=== PATIENT | female | born 1955 | race Caucasian/White ===

== ENCOUNTER 2017-10-31 01:11 | Inpatient (IN) | payer BC, SELFPAY ==
[2017-10-31] MEDS ORDERED: Sodium Chloride 0.9% 100 ML ONE (04:05)
[2017-10-31] MEDS ORDERED: cefTRIAXone\\ROCEPHIN 2 GM VIAL ONE (04:05)
[2017-10-31] MEDS ORDERED: Ketorolac Tromethamine 30 MG/ML VIAL ONE (05:26)
[2017-10-31 06:43] VITALS: BMI 30.9
--- NOTE | 2017-10-31 06:52 | PDOC.FPRHP ---
- History of Present Illness Chief Complaint: falls History of Present Illness: Patient comes in after having multiple falls and reported confusion. 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 She states she is having pain in her right shoulder. Rated at 9/10, described as sharp, worse with movement, more on the posterior side. She states she has had generalized weakness for the last 2-3 days. She denies syncope or LOC. She denies hitting her head. She denies burning with urination or blood in the urine. ED Course: toradol, rocephin, 1L NS - Allergies/Adverse Reactions Allergies Allergy/AdvReac Type Severity Reaction Status Date / Time Sulfa (Sulfonamide Allergy Verified 10/31/17 06:38 Antibiotics) - Home Medications Medication Instructions Recorded Confirmed Type Benzphetamine HCl 25 mg PO DAILY 10/31/17 10/31/17 History Levothyroxine Sodium [Synthroid] 50 mcg PO DAILY 10/31/17 10/31/17 History Metoprolol Tartrate [Lopressor] 25 mg PO BID 10/31/17 10/31/17 History Nortriptyline HCl 150 mg PO HS 10/31/17 10/31/17 History Omeprazole 20 mg PO DAILY 10/31/17 10/31/17 History Venlafaxine HCl [Effexor XR] 75 mg PO DAILY 10/31/17 10/31/17 History Zolpidem Tartrate [Ambien] 10 mg PO HS 10/31/17 10/31/17 History clonazePAM [Klonopin] 0.5 mg PO TID PRN 10/31/17 10/31/17 History - History PMHx: HTN, hypothyroidism, depression PSHx: wrist FHx: non-contributory Social: 1.5 ppd smoker for last 15 years, 1 beer per month, no drugs - Review of Systems General: reports: fatigue. denies: fever/chills, weight/appetite/sleep changes Eyes: denies: eye pain, vision changes ENT: denies: nasal congestion, rhinorrhea Respiratory: denies: cough, congestion, shortness of breath Cardiovascular: denies: chest pain, palpitation, edema, orthopnea Gastrointestinal: denies: nausea, vomiting, diarrhea, abdominal pain, GI bleeding Genitourinary: denies: dysuria, polyuria Skin: denies: rashes, itching Musculoskeletal: reports: pain, stiffness, arthritis/arthralgias Neurological: denies: numbness, weakness Psychological: reports: anxiety, depression - Vital signs BP: 117/75 HR: 81 RR: 18 Tmax: 97.9 Pox: 96% on RA Wt: 80kg - Physical Exam Constitutional: NAD -Constitutional: A&Ox3 HEENT: normocephalic and atraumatic, PERRLA, EOMI, MMM Neck: supple, FROM Heart: RRR, normal S1/S2, no murmurs/rubs/gallops Lungs: CTAB, no respiratory distress, good air movement Abdomen: soft, non-tender, bowel sounds present, no masses/distention Musculoskeletal: normal structure, ROM grossly normal Neurological: no focal deficit Skin: no rash/lesions, capillary refill <2 seconds Heme/Lymphatic: no unusual bruising or bleeding FMR H&P: A/P - Problem List (1) Encephalopathy Current Visit: Yes Status: Acute Code(s): G93.40 - ENCEPHALOPATHY, UNSPECIFIED (2) UTI (urinary tract infection) Current Visit: Yes Status: Acute (3) Clavicle fracture Current Visit: Yes Status: Acute Code(s): S42.009A - FRACTURE OF UNSP PART OF UNSP CLAVICLE, INIT FOR CLOS FX (4) HTN (hypertension) Current Visit: Yes Status: Acute Code(s): I10 - ESSENTIAL (PRIMARY) HYPERTENSION (5) Hypothyroidism Current Visit: Yes Status: Acute Code(s): E03.9 - HYPOTHYROIDISM, UNSPECIFIED (6) Depression Current Visit: Yes Status: Acute Code(s): F32.9 - MAJOR DEPRESSIVE DISORDER , SINGLE EPISODE, UNSPECIFIED - Plan #Encephalopathy 2/2 UTI - rocephin - fluids # R clavicle fracture - sling - norco 5mg q4 hr prn - appears non-displaced # HTN - home meds # depression - home meds # Hypothyroidism - home meds # code - full # PPX - lovenox, SCDs FMR H&P: [place] - Pertinent history 62 year old white female presents with her daughter complaining of falls and confusion today. She also fell twice and wet the bed. Since of the falls her right shoulder hurts. Her daughter and son reported she was asking for her ex- and if he was in the house when she has not interacted with him in years. Patient now able to answer questions and her daughter is at bedside. She denies fevers, chills, headache, dizziness, visual disturbances, rhinorrhea , sore throat, chest pain, dyspnea, abdominal pain, nausea, vomiting, diarrhea, dysuria, polyuria, and uilateral weakness. Reports generalized weakness and nasal congestion. She reports her right shoulde rhurts and she is unable to move it. She says she has a history of frequent UTIs but is usually not symptomatic. - Pertinent findings Tmax 98.3 RR 19 HR 81 BP 116/67 O2 sat 94% on room air Weight 79.4 kg Physical Exam: General: Patient awake, alert, and oriented to person and place. Eyes: EOMI, PERRL, nonicteric ENT: MMM, oropharynx clear CV: RRR, no m/r/g. Pulses full and equal in all 4 extremities Resp: CTA-B, no wheezing, rlaes, or rhonchi. Nonlabored Abdomen: NT, ND, no guarding or rebound Ext: No edema. Right collarbone and glenohumeral joint tender to palpation. Patient's range of motion in shoulder is limited by pain Skin: No rash or ulcer. No palpable lesions. Bruising on posterior of right shoulder at level of trapezius Neuro: CN II - XII intact. No focal deficits Psych: Mood and affect appropriate. - Plan Date/Time: 10/31/17 0650 IJose Elias DO, have evaluated this patient and agree with findings/plan as outlined by journalism internship resident. Pertinent changes/additions are listed here. 62 year old white female with: 1) Acute metabolic encephalopathy 2/2 urinary tract infection - Admit to medical. Blood culture and urine culture ordered. Continue iv antibiotics and iv fluids 2) Right clavicular fracture - Pain management. Ortho consult to be ordered by day team 3) HTN - Home meds 4) Depression - Home meds 5) Anxiety - Home meds
[2017-10-31] MEDS ORDERED: Ondansetron ODT 4 MG TAB PO PRN (07:01)
[2017-10-31] MEDS ORDERED: cefTRIAXone\\ROCEPHIN 1 GM in Sodium Chloride 0.9% 100 ML IVPB SCH (07:01)
[2017-10-31] MEDS ORDERED: HYDROcodone/Acetaminophen 5/325 mg Tablet PO PRN (07:01)
[2017-10-31] MEDS: Sodium Chloride 0.9% 1,000 ML IV SCH ×2 (07:23→16:08)
[2017-10-31] MEDS: Metoprolol Tartrate 25 MG TAB PO SCH ×2 (07:23→20:46)
--- NOTE | 2017-10-31 08:00 | RAD ---
2 VIEWS RIGHT HUMERUS: Date: 10/31/17 COMPARISON: Shoulder radiograph dated 10/31/17. HISTORY: Right arm pain. FINDINGS: Two views of the right humerus show no evidence of fracture or dislocation. Mild soft tissue swelling is seen. IMPRESSION: Unremarkable exam. POS: [facility]
--- NOTE | 2017-10-31 08:04 | RAD ---
3 VIEWS RIGHT SHOULDER: Date: 10/31/17 COMPARISON: None. HISTORY: Right shoulder pain. FINDINGS: Three views of the right shoulder show a lucency through the distal aspect of the clavicle which may represent a distal clavicle fracture. No dislocation is seen. No fracture of the humerus is seen. The visualized right thorax is unremarkable. IMPRESSION: Likely distal right clavicle fracture. POS: [facility]
--- NOTE | 2017-10-31 08:51 | CT ---
PRELIMINARY REPORT/[facility]/EMERGENTY AFTER-HOURS PROCEDURE CT Head Without Intravenous Contrast CLINICAL HISTORY: 62 years old, female; Signs and symptoms; Altered mental status/memory loss; Confusion or disorientat ion; Patient HX: No previous exams; Er 12; 62f presents via ems for AMS. Ems reports patient has had several falls tonight. According to her son, she has been confused as well. Denies hitting her head o r loc. Poor historian. TECHNIQUE: Axial computed tomography images of the head/brain without intravenous contrast. COMPARISON: No relevant prior studies available. FINDINGS: No definite acute skull fracture. Included paranasal sinuses are essentially clear. No acute intracranial hemorrhage or mass effect. Ventricle size is normal for age. No definite acute infarct by CT. MRI could be more sensitive/specific for an acute infarct if clinically indicated. IMPRESSION: No acute intracranial bleed or mass effect. No definite acute infarct by CT, see above. Thank you for allowing us to participate in the care of your patient. Dictated and Authenticated by: Mohan Dwan MD 10/31/2017 3:53 AM Central Time ([place] & [place]) FINAL REPORT EMERGENT AFTER HOURS CT OF BRAIN PERFORMED WITHOUT CONTRAST ENHANCEMENT: HISTORY: Altered mental status. FINDINGS: The ventricular and cisternal system is within normal limits for age. There are no signs of intracer ebral hemorrhage or extraaxial fluid collections. Mastoid air cells and visualized sinuses are clear . IMPRESSION: 1. No acute intracranial abnormalities. 2. This report is in agreement with the temporary report that was issued by [facility]. POS: [facility]
[2017-10-31] MEDS ORDERED: Non-Formulary Item 1 EACH (Omeprazole [Omeprazole] 20 MG) PO SCH (09:00)
[2017-10-31] MEDS ORDERED: Acetaminophen 325 MG TAB PO PRN (09:03)
[2017-10-31] MEDS: Venlafaxine HCl XR 75 MG CAP PO SCH (09:10)
[2017-10-31] MEDS: Levothyroxine Sodium 50 MCG TAB PO SCH (09:10)
[2017-10-31 09:23] LABS: Amphetamine Not Detected (NotDetected); Benzodiazepine Screen Detected (NotDetected); Cocaine Metabolite Screen Not Detected (NotDetected); Medtox Reader # READER 4; Methamphetamine Not Detected (NotDetected); Opiate Screen Not Detected (NotDetected); Phencyclidine (PCP) Not Detected (NotDetected); THC/Cannabinoid Screen Not Detected (NotDetected); Tricyclic Screen Detected (NotDetected)
[2017-10-31 09:24] LABS: Barbiturates Screen Not Detected (NotDetected); Medtox Control Line Valid? VALID (VALID); Methadone Not Detected (NotDetected); Oxycodone Screen Not Detected (NotDetected)
[2017-10-31 09:26] LABS: Bilirubin Negative (Negative); Blood, Urine Negative (Negative); Clarity Turbid (Clear); Glucose, Urine (Dipstick) Negative (Negative); Leukocyte Moderate (Negative); Nitrite Negative (Negative); Protein, Urine (Dipstick) Negative (Neg-Trace); Specific Gravity, Urine 1.025 (1.002-1.036); Urobilinogen 0.2 mg/dL (0.2-1.0); pH, Urine 5.5 (5.0-9.0)
[2017-10-31 09:27] LABS: Bacteria/HPF 4+ HPF (None Seen); RBC/HPF 21-50 HPF (0-3); Renal Epithelial None Seen HPF (0-3); Transitional Epithelial NONE SEEN HPF (0-3); Yeast-All Forms None Seen HPF (None Seen)
[2017-10-31 09:28] LABS: Crystals/HPF None Seen HPF (Negative); Hyaline Casts/LPF NONE SEEN LPF (0-3 Hyaline); Other Casts/LPF None Seen LPF (0-3 Hyaline)
[2017-10-31 10:35] LABS: Anion Gap 14 mmol/L (10-20); BUN (Urea Nitrogen) 22 mg/dL (9.8-20.1); Calc. Creatinine Clearance 92 mL/min (70-130); Carbon Dioxide 27 mmol/L (23-31); Chloride 101 mmol/L (98-107); Potassium 3.9 mmol/L (3.5-5.1); Sodium 138 mmol/L (136-145)
[2017-10-31 10:36] LABS: Albumin 4.3 g/dL (3.4-4.8); Bilirubin, Total 0.5 mg/dL (0.2-1.2); Calcium 9.5 mg/dL (7.8-10.44); Estimated GFR-MDRD 70; Globulin 3.5 g/dL (2.4-3.5); Glucose 101 mg/dL (80-115); Protein, Total 7.8 g/dL (5.8-8.1)
[2017-10-31 10:37] LABS: ALT (SGPT) 22 U/L (8-55); AST (SGOT) 27 U/L (5-34); Alcohol Less than 10 mg/dL (Less than 10); Alkaline Phosphatase 153 U/L (40-150); CK (CPK) 581 U/L (29-168)
[2017-10-31 10:39] LABS: Hemoglobin 13.4 g/dL (12.0-16.0); Mean Corpuscular Hemoglobin 30.2 pg (27.0-31.0); Mean Corpuscular Volume 92.5 fL (81.0-99.0); Red Blood Cell (RBC) Count 4.42 mill/uL (4.20-5.40); White Blood Cell (WBC) Count 16.1 thou/uL (4.8-10.8)
[2017-10-31 10:40] LABS: #Eosinphils 0.1 thou/uL (0.0-0.7); #Lymphocytes 3.8 thou/uL (1.20-3.40); #Monocytes 0.6 thou/uL (0.11-0.59); #Neutrophils 11.6 thou/uL (1.40-6.50); %Basophils 0.2 % (0.0-1.0); %Eosinophils 0.7 % (0.0-10.0); %Lymphocytes 23.4 % (21.0-51.0); %Monocytes 3.7 % (0.0-10.0); Mean Corpuscular HGB CONC 32.7 g/dL (32.0-36.0); Mean Platelet Volume 8.4 fL (7.4-10.4); Platelet Count 225 thou/uL (130-400); RBC Distribution Width 13.7 % (11.5-14.5)
[2017-10-31 10:52] LABS: CKMB 4.9 ng/mL (0-6.6); Troponin I Less than 0.010 ng/mL (< 0.028)
[2017-10-31] MEDS ORDERED: traMADol HCl 50 MG TAB PO PRN (16:27)
[2017-10-31] MEDS: HYDROcodone/Acetaminophen 5/325 mg Tablet PO PRN (18:26)
[2017-10-31] MEDS ORDERED: Non-Formulary Item 1 EACH (Zolpidem Tartrate [Ambien] 10 MG) PO SCH (21:00)
[2017-10-31] MEDS ORDERED: Zolpidem Tartrate 5 MG TAB PO SCH (21:00)
[2017-10-31] MEDS ORDERED: Nortriptyline HCl 25 MG CAP PO SCH (21:00)
[2017-10-31] MEDS ORDERED: NORTRIPTYLINE HCL 150 MG PO SCH (21:00)
[2017-11-01] MEDS: HYDROcodone/Acetaminophen 5/325 mg Tablet PO PRN ×2 (01:51→08:35)
[2017-11-01] MEDS: Sodium Chloride 0.9% 1,000 ML IV SCH (01:52)
[2017-11-01 04:23] LABS: #Eosinphils 0.3 thou/uL (0.0-0.7); #Lymphocytes 2.6 thou/uL (1.20-3.40); #Monocytes 0.4 thou/uL (0.11-0.59); #Neutrophils 5.5 thou/uL (1.40-6.50); %Basophils 0.4 % (0.0-1.0); %Eosinophils 3.1 % (0.0-10.0); %Lymphocytes 29.3 % (21.0-51.0); %Monocytes 4.5 % (0.0-10.0); %Neutrophils 62.7 % (42.0-75.0); Hemoglobin 10.9 g/dL (12.0-16.0); Mean Corpuscular HGB CONC 32.3 g/dL (32.0-36.0); Mean Corpuscular Hemoglobin 30.6 pg (27.0-31.0); Mean Corpuscular Volume 94.7 fl (81.0-99.0); Mean Platelet Volume 8.6 fL (7.4-10.4); Platelet Count 180 thou/uL (130-400); RBC Distribution Width 13.8 % (11.5-14.5); Red Blood Cell (RBC) Count 3.56 mill/uL (4.20-5.40); White Blood Cell (WBC) Count 8.8 thou/uL (4.8-10.8)
[2017-11-01 05:51] LABS: Anion Gap 12 mmol/L (10-20); BUN (Urea Nitrogen) 12 mg/dL (9.8-20.1); Calc. Creatinine Clearance 109 mL/min (70-130); Calcium 8.4 mg/dL (7.8-10.44); Carbon Dioxide 21 mmol/L (23-31); Chloride 110 mmol/L (98-107); Estimated GFR-MDRD 85; Glucose 92 mg/dL (80-115); Potassium 3.9 mmol/L (3.5-5.1); Sodium 139 mmol/L (136-145)
[2017-11-01] MEDS ORDERED: cefTRIAXone\\ROCEPHIN 1 GM, Syringe 0.4 ML in Sterile Water 9.6 ML SLOW IVP SCH (06:00)
--- NOTE | 2017-11-01 06:41 | PDOC.FM ---
- Subjective Subjective: Patient doing well this AM. No significant overnight events. She states that she feels so much better than she did yesterday. We discussed support at home, and she stated she lives with her 25 year old son. She never had any symptoms of UTI, but is responding well to antibiotics. She inquired about going home today. Discussed that we may need an additional day of IV abx and some culture results. Patient denies any chest pain, shortness of breath, nausea or vomiting. - Objective MAR Reviewed: Yes Vital Signs & Weight: Vital Signs (12 hours) Temp Pulse Resp BP Pulse Ox 11/01/17 04:00 98.8 F 90 17 140/85 94 L 10/31/17 23:47 98.2 F 90 18 113/56 L 94 L 10/31/17 20:05 97 10/31/17 19:47 98.6 F 97 20 97 10/31/17 19:10 98.6 F 97 20 111/72 90 L Weight Weight 81.647 kg I&O: 10/30/17 10/31/17 11/01/17 06:59 06:59 06:59 Intake Total 1650 Balance 1650 Result Diagrams: 11/01/17 03:37 11/01/17 03:37 EKG Reviewed by me: Yes Radiology Reviewed by me: Yes <Ijeoma Granda - Last Filed: 11/01/17 09:08> - Objective Vital Signs & Weight: Vital Signs (12 hours) Temp Pulse Resp BP Pulse Ox 11/01/17 11:23 98.3 F 75 16 126/85 92 L 11/01/17 08:00 97.8 F 85 18 92 L 11/01/17 07:45 97.8 F 85 18 128/79 92 L 11/01/17 04:00 98.8 F 90 17 140/85 94 L Weight Weight 81.647 kg I&O: 10/31/17 11/01/17 11/02/17 06:59 06:59 06:59 Intake Total 1650 Balance 1650 Result Diagrams: 11/01/17 03:37 11/01/17 03:37 <Vicky Campbell - Last Filed: 11/01/17 14:38> Phys Exam - Physical Examination Constitutional: NAD HEENT: moist MMs Neck: supple Respiratory: clear to auscultation bilateral Cardiovascular: RRR, no significant murmur Gastrointestinal: soft, no distention, positive bowel sounds Musculoskeletal: no edema, pulses present Neurological: non-focal Psychiatric: normal affect Skin: no rash, cap refill <2 seconds <Ijeoma Granda - Last Filed: 11/01/17 09:08> Dx/Plan (1) Encephalopathy Code(s): G93.40 - ENCEPHALOPATHY, UNSPECIFIED Status: Acute (2) UTI (urinary tract infection) Status: Acute QualifierTitle: Urinary tract infection type: acute cystitis Hematuria presence: without hematuria Qualified Code(s): N30.00 - Acute cystitis without hematuria (3) Clavicle fracture Code(s): S42.009A - FRACTURE OF UNSP PART OF UNSP CLAVICLE, INIT FOR CLOS FX Status: Acute QualifierTitle: Encounter type: initial encounter Clavicle location: lateral end Fracture type: closed Fracture alignment: nondisplaced Laterality: right Qualified Code(s): S42.034A - Nondisplaced fracture of lateral end of right clavicle, initial encounter for closed fracture (4) Depression Code(s): F32.9 - MAJOR DEPRESSIVE DISORDER, SINGLE EPISODE, UNSPECIFIED Status : Chronic (5) HTN (hypertension) Code(s): I10 - ESSENTIAL (PRIMARY) HYPERTENSION Status: Chronic QualifierTitle: Hypertension type: essential hypertension Qualified Code( s): I10 - Essential (primary) hypertension (6) Hypothyroidism Code(s): E03.9 - HYPOTHYROIDISM, UNSPECIFIED Status: Chronic QualifierTitle: Hypothyroidism type: unspecified Qualified Code(s): E03.9 - Hypothyroidism, unspecified - Plan Plan: Acute metabolic encephalopathy 2/2 UTI - Continue rocephin q24; consider transitioning to oral if improved mentation - Adequately fluid resuscitated - Decrease/discontinue fluids this AM - Blood and urine cultures pending Right clavicle fracture - Sling - [place] 5mg q4 hr prn - Consulted orthopedic surgery for recs; reviewed images and agree with sling and follow up in 2 weeks as outpatient - Lateral, non-displaced clavicle fracture HTN - Home meds Depression - Continue home meds - Held meds that may contribute to delirium Hypothyroidism - Continue home meds - TSH elevated; recommend follow up with PCP as outpatient for titration if necessary Code status - Full code PPX - Lovenox, SCDs Dispo: Consider transition to oral antibiotics with anticipated discharge home today or tomorrow pending patient's mental status and preliminary results of cultures. <Ijeoma Granda - Last Filed: 11/01/17 09:08> Attending Addendum - Attending Addendum Date/Time: 11/01/17 [id number] I personally evaluated the patient and discussed the management with Dr. Granda. I agree with the History, Examination, Assessment and Plan documented above with any addition or exceptions noted below. The patient's confusion has resolved. She is feeling better. UTI shows enterococcus. Will transition to amoxicillin and pt will be discharged home. <Vicky Campbell - Last Filed: 11/01/17 14:38>
[2017-11-01] MEDS: Metoprolol Tartrate 25 MG TAB PO SCH (08:34)
[2017-11-01] MEDS: Levothyroxine Sodium 50 MCG TAB PO SCH (08:34)
[2017-11-01] MEDS: Venlafaxine HCl XR 75 MG CAP PO SCH (08:35)
[2017-11-01 11:24] VITALS: BP 126/85; TEMP 98.3
[2017-11-02] MEDS ORDERED: Cephalexin 250 MG CAP PO SCH (09:00)
--- NOTE | 2017-11-02 17:15 | DIS-2 ---
DATE OF ADMISSION: 10/31/2017 DATE OF DISCHARGE: 11/01/2017 ADMITTING ATTENDING: Darius Pulido M.D. DISCHARGE ATTENDING: Vicky Campbell M.D. RESIDENT: Ijeoma Granda DO CONSULTATIONS: None. PROCEDURES: 1. Brain CT, no acute intracranial bleed or mass effect. 2. Humerus x-ray, unremarkable exam. 3. Shoulder x-ray, distal right clavicular fracture. PRIMARY DIAGNOSES: 1. Encephalopathy, likely secondary to urinary tract infection. 2. Right distal nondisplaced clavicle fracture. SECONDARY DIAGNOSES: 1. Hypertension. 2. Depression. 3. Hypothyroidism. DISCHARGE MEDICATIONS: 1. Acetaminophen with codeine 1 tablet every 4 hours as needed for pain, the patient was given a tot al of 15 pills. 2. Amoxicillin 1000 mg oral every 12 hours for 7 days. 3. Zolpidem tartrate 10 mg oral at bedtime. 4. Omeprazole 20 mg oral daily. 5. Nortriptyline 150 mg oral at bedtime. 6. Metoprolol tartrate 25 mg oral twice daily. 7. Levothyroxine sodium 50 mcg oral daily. 8. Clonazepam 0.5 mg oral 3 times daily as needed. 9. Benzphetamine 25 mg oral daily. 9. Venlafaxine 75 mg oral daily. DISCONTINUED MEDICATIONS: None. HISTORY OF PRESENT ILLNESS AND HOSPITAL COURSE: This is a 62-year-old female, who came in after havi ng multiple falls and reported confusion. She apparently had 2 mechanical falls that was read by his tory upon presentation to the emergency department. She does endorse having pain in her right should er, which is rated as a 9/10, described as a sharp pain, worse with movement and located more on the posterior side of the arm. She also states that she has been having generalized weakness for the las t 2-3 days. She denies any syncope or loss of consciousness. The patient denies hitting her head. She denied any burning with urination or blood in the urine. The patient was given Toradol, Rocephin and 1 liter of normal saline in the emergency department. The patient was found to have a UA consistent with a UTI. She had moderate leukocyte esterase, 21-50 red blood cells, greater than 50 wbc's and 4+ bacteria. Urine culture grew out Enterococcus species , sensitive to Augmentin and amoxicillin. By the second day, the patient was much more alert and terry ented. She seemed improved from the previous day and stated she was feeling much better. Her white count on admission was 16.1, which downtrended to 8.8 on the following day. She was started on fluid s and continued on Rocephin until the cultures resulted. Once the cultures are resulted, she was swi tched over to amoxicillin 1000 mg p.o. q.12 hours to take for a period of 7 days. Orthopedic Surgery was consulted regarding the right clavicle fracture. They took a look at the x-ra ys and agreed that patient would be stable in the sling with followup with outpatient orthopedic foll ow up in [address] Rowe's office was provided to the patient upon discharge. She was sent home with Tylenol #3 for pain control and advised to follow up with her primary care gustavo black regarding further pain management. DISPOSITION: Stable. DISCHARGE INSTRUCTIONS: 1. Location: Home. 2. Activity: Orthopedic limitations for right clavicle fracture. The patient is to wear a sling p. r.n. for pain. She was encouraged to mobilize right arm as tolerated. 3. Diet: Low sodium diet. FOLLOWUP INSTRUCTIONS: The patient is to followup with her primary care physician within 7 days from discharge. Additionally, she is to follow with Dr. Rowe's office within 2 weeks of discharge t o further evaluate clavicle fracture. This was discussed with the patient at length and she was in u nderstanding of the plan and agreeable.
== END 2017-11-01 15:49 | disposition home or self-care (01) | DRG 689 ==
LOC: ERS 01:11 → T4-A 04:09 → OBSVTOIN 04:09 → INTOOBSV 04:09
PROVIDERS: ADMIT Emergency Medicine; ATTEND Emergency Medicine
DX: N39.0 Urinary tract infection, site not specified (principal); G93.41 Metabolic encephalopathy; S42.031A Displaced fracture of lateral end of right clavicle, initial encounter for closed fracture; E03.9 Hypothyroidism, unspecified; I10 Essential (primary) hypertension; F32.9 Major depressive disorder, single episode, unspecified; B95.2 Enterococcus as the cause of diseases classified elsewhere; W19.XXXA Unspecified fall, initial encounter; Z88.2 Allergy status to sulfonamides; Z79.899 Other long term (current) drug therapy
CPT/HCPCS: 36415; 36416; 51701; 70450; 80048; 80053; 80306; 80307; 81001; 82140; 82553; 84484; 85025; 87077; 87086; 87186; 96365; 96375; A4216; A4353; J0696; J1885; J7050